=== PATIENT | female | born 1965 | race American Indian/Alaskan Native ===

== ENCOUNTER 2017-01-31 22:18 | Emergency (ER) | payer MEDICARE, MEDICAID ==
--- NOTE | ~2017-01-31 | ER ---
PATIENT'S NAME: LUIS NASSAR [facility] AGE: 51 Y [address] ROOM: [place] [id number] LOCATION: ED ADMIT DATE: 01/31/2017 ER/Outpatient Report DISCHARGE DATE: 02/01/2017 FAMILY PHYSICIAN: Aravind Min MD ATTENDING PHYSICIAN: Ori Saha Time of Arrival: 2218 hours. Time of Evaluation: 2230 hours. CHIEF COMPLAINT: Abdominal pain. HISTORY OF PRESENT ILLNESS: This is a 51-year-old female, who presents to the ER, who states she is having some epigastric abdominal pain. This has been going on for the past 4 days. The patient states it is sharp and stabbing in nature. It waxes and wanes in intensity. She does not associate it with any food or position. She states she has had no vomiting, but she has felt nauseated a couple times. She has had no diarrhea. No constipation. No fever. She states she does have chronic kidney disease. She does do dialysis on Mondays, Wednesdays, and Fridays. She did tell the dialysis people about how she was feeling and they told her to follow up in the clinic, however, she states that she did not do that. She states that her pain does not radiate into her back and she has never had anything like this before. ALLERGIES: DARVOCET. MEDICATIONS: Please see medication list nurse's notes. PAST MEDICAL HISTORY: 1. Stage IV chronic renal failure. 2. She does dialysis Sunday, Sunday, and Sunday; and she has a left arm fistula. SOCIAL HISTORY: Denies smoking, drug, or alcohol use. REVIEW OF SYSTEMS: A 10-point review of systems was completed and was negative with the exception of those discussed in the HPI. PHYSICAL EXAMINATION: VITAL SIGNS: Height 5 feet and 6 inches stated, weight 58.9 kg taken, blood PATIENT'S NAME: LUIS NASSAR [facility] AGE: 51 Y [address] ROOM: [place], [place] [address] LOCATION: ED ADMIT DATE: 01/31/2017 ER/Outpatient Report DISCHARGE DATE: 02/01/2017 FAMILY PHYSICIAN: Aravind Min MD ATTENDING PHYSICIAN: Ori Saha pressure is 148/75, pulse 95, respirations 16, temperature 98.5 degrees tympanically, and saturations 95% on room air. Aly Coma Score is 15. GENERAL: Alert, calm, well-developed female, in mild distress. HEENT: Head: Normocephalic. Eyes: Pupils are equal and reactive to light. She does display moist mucous membranes. LUNGS: Clear to auscultation bilaterally. No wheezes or crackles. HEART: Regular rate and rhythm. No lifts, thrills, or murmurs. ABDOMEN: Soft. She does have tenderness in her midepigastric region with palpation. She does not guard. She has no rebound tenderness. She has good bowel sounds throughout. EXTREMITIES: No clubbing or cyanosis. LABORATORY DATA AND X-RAYS: CBC: White count of 11.3, hemoglobin 10.9, platelets 156, and ANC is 8.1. CMS: Sodium is 138, potassium 4.4, BUN is 21, creatinine is 4.1, estimated GFR is 12, amylase 61, lipase 158. H. pylori was negative. Urinalysis; leukocytes 100, nitrites negative. UA with micro; white blood cells 20 to 50, red blood cells negative, epithelial 0 to 2, bacteria many. CT scan was done with IV contrast, shows new left lower lobe nodular opacities, could be inflammatory versus infectious. She has nonspecific bowel gas pattern, nonspecific small reactive lymph nodes. IMPRESSION: 1. Abdominal pain. 2. Stage IV chronic renal failure. 3. New lower lobe nodular opacities. ASSESSMENT AND PLAN: I discussed the patient's care with Dr. Saha. We did start an IV here in the emergency room and did give her 500 mL bolus of fluids. The patient did rest comfortably during her stay and her abdomen improved while she was here. We will culture her urine. We will send her home with a prescription for Cipro and Laotto to use as directed. She needs to monitor her symptoms. I would like her to follow up with her primary care physician on Sunday. The patient and patient's friend understand and agree with care. LUIS MALDONADO PA-C FOR MD EDWAR HARRIS/darci PATIENT'S NAME: NEREIDA IN LUIS PAYNE [facility] AGE: 51 Y [address] ROOM: [place] [id number] LOCATION: [facility] ADMIT DATE: 01/31/2017 ER/Outpatient Report DISCHARGE DATE: 02/01/2017 FAMILY PHYSICIAN: Aravind Min MD ATTENDING PHYSICIAN: Ori Saha /[id number] d: t: 02/03/17 1325, OUTPATIENT REPORT
[~2017-01-31 22:18] MED LIST: LEVOTHROID (S100 MCG PO; NORVASC10 MG PO; NOVOLIN-R100 UNIT/M SUB-Q; PRAVACHOL20 MG PO; SPIRIVA HANDIHA1 KIT INH; TESSALON PERLE100 MG PO; TYLENOL325 MG PO
[2017-01-31 22:32] LABS: BLOOD URINE NEGATIVE /UL (NEGATIVE); COLOR URINE YELLOW (YELLOW); GLUCOSE URINE NEGATIVE (NEGATIVE); KETONE URINE NEGATIVE (NEGATIVE); LEUKOCYTES URINE 100 /UL (NEGATIVE); NITRITE URINE NEGATIVE (NEGATIVE); PROTEIN URINE 500 mg/dL (NEGATIVE); TURBIDITY URINE 2+ (CLEAR); UROBILINOGEN URINE NORMAL (NORMAL)
[2017-01-31 22:42] LABS: EPITHELIAL URINE 0-2 #/HPF (NEGATIVE); RBC URINE NEGATIVE #/HPF (NEGATIVE); WBC URINE 20-50 #/HPF (NEGATIVE)
[2017-01-31 22:43] LABS: BACTERIA URINE MANY (NEGATIVE)
[2017-01-31 23:02] LABS: BASOPHIL % 0.2 %; EOSINOPHIL # 0.5 K/uL (0.0-0.5); EOSINOPHIL % 4.1 %; HEMATOCRIT 34.5 % (33.0-46.0); HEMOGLOBIN 10.9 g/dL (10.0-15.0); IMMATURE GRANULOCYTE % 0.3 %; LYMPHOCYTE # 1.6 K/uL (0.8-4.0); LYMPHOCYTE % 14.4 %; MCH 30.1 pg (27.0-34.0); MCHC 31.6 gm/dL (32.0-36.5); MCV 95.3 fl (83.0-98.0); MONOCYTE # 1.1 K/uL (0.0-1.0); MONOCYTE % 9.9 %; MPV 10.5 fl (9.4-12.4); NEUTROPHIL # (ANC) 8.1 K/uL (1.8-7.8); NEUTROPHIL % 71.1 %; NRBC % 0 /100WBC (0-0.00); PLATELET COUNT 156 K/uL (150-450); RDW-CV 14.5 % (11.9-14.6); WBC 11.3 K/uL (4.0-11.0)
[2017-01-31 23:05] LABS: RBC 3.62 M/uL (3.50-5.50)
[2017-01-31 23:18] LABS: ALBUMIN 3.4 gm/dL (3.5-5.0); ANION GAP 9.4 (10.0-19.0); CALCIUM 8.9 mg/dL (8.5-10.5); CREATININE 4.1 mg/dL (0.5-1.1); POTASSIUM 4.4 mMol/L (3.7-5.1); TOTAL BILIRUBIN 0.5 mg/dL (0.0-1.5); TOTAL PROTEIN 8.2 g/dL (6.0-8.4)
== END 2017-02-01 00:09 | disposition disaster alternative care site (69) ==
LOC: GMED 22:18
PROVIDERS: Emergency Medicine
DX: R10.13 Epigastric pain (principal); R91.8 Other nonspecific abnormal finding of lung field; N18.6 End stage renal disease; Z99.2 Dependence on renal dialysis; Z88.5 Allergy status to narcotic agent; Z79.899 Other long term (current) drug therapy
CPT/HCPCS: J7030; Q9967